=== PATIENT | female | born 1995 | race African-American/Black ===

== ENCOUNTER → 2019-09-15 | Day surgery (SDC) | payer OTHER ==
[~2019-09-15] MED LIST: COLACE100 MG PO; FENTANYL CITRATE/PF 100MCG/2 ML INJ ONE; LEVSIN0.125 MG PO; MIDAZOLAM HCL 2 MG/2 ML VIAL ONE; MIRALAX17 GM PEG; OXYBUTYNIN CHLOR5 MG PO; PANTOPRAZOLE SO40 MG PO; PROPOFOL IV EMULSION 10 MG/ML 20 ML VIAL ONE; TRULANCE3 MG PO; VYLIBRA 28 TAB1 EACH PO; desmopressin PO
--- NOTE | 2019-09-15 19:27 | Operative Report ---
DATE OF PROCEDURE: 09/15/2019 SURGEON: Ramiro Daniel MD PROCEDURE: Esophagogastroduodenoscopy with biopsies. INDICATION FOR ESOPHAGOGASTRODUODENOSCOPY: Dyspepsia. MEDICATIONS: The patient was done under MAC. Please see anesthesiologist's note. PROCEDURE IN DETAIL: With the patient in the left lateral decubitus position, the flexible fiberoptic Olympus gastroscope was introduced into the esophagus under direct visualization without any difficulty. There was some patchy intense erythema noted in the distal esophagus and biopsies were obtained. The scope was then advanced with ease into the stomach. Mucosa overlying the antrum and the body revealed some patchy erythema and [id number] edema and biopsies were obtained and sent to stain for Helicobacter pylori. Pylorus was of normal contour and shape, it was intubated with ease and the scope was advanced all the way to the second portion of the duodenum. Biopsies were obtained from the proximal second portion and the duodenal bulb to rule out sprue. The scope was then withdrawn back into the stomach and retroflexed. Mucosa overlying the fundus and cardia appeared to be within normal limits. The scope was then straightened out. It was subsequently withdrawn. The patient tolerated the procedure well. IMPRESSION: 1. Distal esophagitis. 2. Gastritis, biopsied. Biopsies sent to stain for Helicobacter pylori. 3. Rule out sprue. PLAN: Follow up histology. Increase Protonix to 40 mg one p.o. before meals b.i.d. Ramiro Daniel MD [facility] – [place] /[id number] cc: Shobha Scott MD
[2019-09-16 17:03] LABS: FREE THYROXINE INDEX 2.2753 (1.4-3.8)
[2019-09-17 10:25] LABS: THYROID STIMULATING HORMONE 1.079 uIU/mL (0.350-4.940)
== END | disposition home or self-care (01) ==
LOC: OR 12:56
PROVIDERS: ATTEND Internal Medicine Gastroenterology
DX: K29.70 Gastritis, unspecified, without bleeding (principal); R11.0 Nausea; R14.0 Abdominal distension (gaseous); Z01.812 Encounter for preprocedural laboratory examination; K21.9 Gastro-esophageal reflux disease without esophagitis; R10.10 Upper abdominal pain, unspecified; R10.30 Lower abdominal pain, unspecified; K59.09 Other constipation; R12 Heartburn; K20.9 Esophagitis, unspecified
CPT/HCPCS: 36415; 43239; 81025; 84436; 84443; 84479; J2250; J2704; J3010

== ENCOUNTER → 2022-10-29 | Day surgery (SDC) | payer BC, OTHER ==
[~2022-10-29] MED LIST changes: -FENTANYL CITRATE/PF 100MCG/2 ML INJ ONE; +LABETALOL HCL100 MG PO; +LIDOCAINE HCL 2% LOCAL INJ 5 ML SDV VIAL INJ ONE; +METOCLOPRAMIDE HCL 10 MG/2ML VIAL ONE; -PROPOFOL IV EMULSION 10 MG/ML 20 ML VIAL ONE; +PROPOFOL IV EMULSION 50 ML IV ONE
[2022-10-29 13:05] VITALS: BP 119/68
== END | disposition home or self-care (01) ==
LOC: OR 09:25
PROVIDERS: ATTEND Internal Medicine Gastroenterology
DX: K29.50 Unspecified chronic gastritis without bleeding (principal); K52.9 Noninfective gastroenteritis and colitis, unspecified; K20.90 Esophagitis, unspecified without bleeding; K21.9 Gastro-esophageal reflux disease without esophagitis; K44.9 Diaphragmatic hernia without obstruction or gangrene; K62.89 Other specified diseases of anus and rectum; K64.8 Other hemorrhoids; Z71.3 Dietary counseling and surveillance; I10 Essential (primary) hypertension; Z71.89 Other specified counseling; R01.1 Cardiac murmur, unspecified; N39.0 Urinary tract infection, site not specified; Z01.810 Encounter for preprocedural cardiovascular examination; Z79.899 Other long term (current) drug therapy; Z68.31 Body mass index [BMI] 31.0-31.9, adult; Z80.0 Family history of malignant neoplasm of digestive organs
CPT/HCPCS: 43239; 45380; 81025; 93005; C9113; J2001; J2250; J2704; J2765; 45378